=== PATIENT | female | born 1990 | race Hispanic/Latino ===

== ENCOUNTER 2020-06-24 07:26 | Observation (INO) | payer MEDICAID ==
[~2020-06-24] VITALS: Ht 152.4 cm; Wt 83.9 kg
[2020-06-24 07:48] LABS: BASOPHILS % (AUTO) 0.4 % (0.0-5.0); EOSINOPHILS % (AUTO) 0.9 % (0.0-8.0); HEMATOCRIT 38.5 % (36-48); LYMPHOCYTES % (AUTO) 12.7 % (21.0-51.0); MEAN CORPUSCULAR HEMOGLOBIN 28.8 pg (27.0-33.0); MEAN CORPUSCULAR HGB CONC 33.5 g/dL (32.0-36.0); MEAN CORPUSCULAR VOLUME 85.9 fL (79-99); MONOCYTES % (AUTO) 4.8 % (3.0-13.0); NEUTROPHILS % (AUTO) 80.8 % (40.0-77.0); PLATELET COUNT (AUTO) 233 K/uL (130-400); RED BLOOD CELL COUNT(AUTO) 4.48 MIL/uL (4.00-5.50); RED CELL DISTRIBUTION WIDTH 11.8 % (11.0-15.5); WHITE BLOOD COUNT (AUTO) 14.3 K/uL (4.8-10.8)
[2020-06-24 08:02] LABS: INR 0.92 (0.85-1.15)
[2020-06-24] MEDS ORDERED: ONDANSETRON HCL 4 MG/2 ML VIAL ONE (08:18)
[2020-06-24] MEDS ORDERED: MORPHINE SULFATE 4 MG/1ML SYG ONE (08:19)
[2020-06-24 08:24] LABS: CREATININE 0.6 mg/dL (0.5-1.5); POTASSIUM 3.9 mmol/L (3.5-5.1)
[2020-06-24 10:10] VITALS: BP 126/86
[2020-06-24] MEDS ORDERED: PNV11TAB5 PO (10:44)
[2020-06-24] MEDS ORDERED: USP IV SCH (11:00)
[2020-06-24] MEDS ORDERED: PROMETHAZINE HCL 25 MG/ML 1ML AMPULE IM PRN ×3 (11:00→16:30)
[2020-06-24] MEDS ORDERED: OXYTOCIN IV SCH (11:00)
[2020-06-24] MEDS ORDERED: SODIUM CHLORIDE 0.9% IV SCH (11:00)
[2020-06-24] MEDS ORDERED: MEPERIDINE-PF 25 MG/ML SYG IM PRN ×2 (11:00)
[2020-06-24] MEDS ORDERED: SODIUM CHLORIDE 0.9% 1000ML 1,000 ML IV SCH ×2 (11:00→16:30)
--- NOTE | 2020-06-24 11:00 | NUR ---
QBL PT ASSISTED TO BATHROOM AND OBTAINED 29 MLS FOR QBL. PT TOLERATED WELL AND ASSISTED BACK TO BED. NO COMPLAINTS AT THIS TIME.
[2020-06-24] MEDS ORDERED: FLU VACC QS2020-21(6MOS UP)/PF 60 MCG/0.5 ML ML IM ONE (12:00)
--- NOTE | 2020-06-24 15:30 | NUR ---
DR. BRAVO AT BEDSIDE TO ASSESS AND TALK TO PT. VAGINAL BLEEDING CONTINUES. DR. BRAVO DISCUSSED POC FOR D&C. PT VERBALIZED UNDERSTANDING AND IS IN AGREEMENT WITH PLAN.
[2020-06-24 15:40] VITALS: BP 125/94
--- NOTE | 2020-06-24 15:55 | NUR ---
PT TAKEN BY BED TO L&D OR FOR D&C.
[2020-06-24] MEDS ORDERED: MIDAZOLAM HCL 1 MG/ML 2ML VIAL ONE (15:57)
[2020-06-24] MEDS ORDERED: FENTANYL CITRATE PF 50 MCG/1 ML 2ML VIAL ONE (15:58)
[2020-06-24] MEDS ORDERED: PROPOFOL 10 MG/ML 20ML VIAL IV ONE (15:59)
[2020-06-24] MEDS ORDERED: SUCCINYLCHOLINE CHLORIDE 20 MG/ML 10 ML VIAL ONE (16:00)
--- NOTE | 2020-06-24 16:00 | NUR ---
IA-DCP Pt. is single, resides in apartment with boyfriend on her parents property, employed at [employer]. Pt. is independent, no HH, Provider services, DME or Oxygen. Pt. utilizes [employer] [facility] or [facility] in [place]. Pt's boyfriend Lm Prado [phone] will provide transportation home. Family/boyfriend supportive and will assist post discharge. Pt. is comfortable returning home post discharge; verbalized no concerns or needs. DCP: Return home when medically cleared. Addendum: 06/24/20 at 1613 by MARSHAL BAL Amended: Links added.
[2020-06-24] MEDS ORDERED: ROCURONIUM 10MG/1ML SYR 10 MG/ML ML ONE (16:02)
[2020-06-24] MEDS ORDERED: OXYTOCIN 10 USP UNITS/ML ONE (16:08)
[2020-06-24] MEDS ORDERED: ACETAMINOPHEN-CODEINE 300/30MG TAB PO PRN (16:30)
--- NOTE | 2020-06-24 17:20 | NUR ---
PT RECEIVED FROM L&D VIA BED IN STABLE CONDITION. BLEEDING SCANT. NO COMPLAINTS FROM PT AT THIS TIME.
[2020-06-24 17:23] VITALS: BP 142/87
--- NOTE | 2020-06-24 19:10 | NUR ---
DISCHARGE PT LEFT UNIT VIA WHEELCHAIR, ACCOMPANIED BY SIGNIFICANT OTHER. DENIED PAIN AND HAD NO COMPLAINTS. TRANSPORTED BY PERSONAL VEHICLE.
--- NOTE | 2020-06-24 19:10 | NUR ---
PT REMAINS IN STABLE CONDITION. TOLERATED BLAND DIET, VOIDED WITHOUT DIFFICULTY, AND PAIN IS UNDER CONTROL. PT DISCHARGED AT THIS TIME.
== END 2020-06-24 19:20 | disposition home or self-care (01) ==
LOC: EDH 07:26 → EDHIP 07:27 → WSH 09:40
PROVIDERS: ADMIT Specialist; ATTEND Specialist
DX: O03.4 Incomplete spontaneous abortion without complication (principal); Z3A.14 14 weeks gestation of pregnancy
CPT/HCPCS: 36415; 59812; 76817; 80048; 84702; 85025; 85610; 85730; 86900; 86901; 88305 ×2; 96365; 96366; 99284; G0378 ×8; J0330; J2250; J2270; J2405; J2590 ×2; J2704; J3010